=== PATIENT | female | born 1990 | race Caucasian/White ===

== ENCOUNTER 2018-12-20 22:39 | Emergency (ER) | payer MEDICAID, SELFPAY ==
[2018-12-20 22:56] VITALS: BP 122/75; PULSE 81; RESP 18; TEMP 37.4; O2SAT 97; BMI 27.6
--- NOTE | 2018-12-21 00:16 | [facility].EDDENT ---
ED Disposition Clinical Impression: Pain, dental Disposition: Home, Self-Care Condition on Discharge: Good Instructions: DI for Dental Pain Additional Instructions: use meds and call dentist Prescriptions: cephALEXin [Keflex 500mg Cap] 500 mg PO TID #30 cap Referrals: Francesca Dumas MD [Primary Care Provider] - - Critical Care Critical Care Time: No Attestation: On 12/20/18, the high probability of a clinically significant, sudden or life threatening deterioration of the following system(s) required my full and direct attention, intervention and personal management. The time I documented below is in addition to time spent performing reported procedures but includes the following listed in this critical care notation. Medical Decision Making - Medical Records Medical records reviewed: Yes: I reviewed the patient's medical records. - Hector Inquiry Pt receiving controlled substance: No Vital Signs: 12/20/18 22:56 Temperature 99.3 F Temperature Source Oral Pulse Rate [Right Brachial] 81 Respiratory Rate 18 Blood Pressure [Right Arm] 122/75 Blood Pressure Mean [Right Arm] 90 Blood Pressure Source [Right Arm] Automatic Cuff Blood Pressure Position [Right Arm] Sitting 02 Sat by Pulse Oximetry 97 Oxygen Delivery Method Room Air Orders (Tests/Meds): ED MEDICATIONS Discontinued Medications Generic Name Dose Route Start Last Admin Trade Name Freq PRN Reason Stop Dose Admin Acetaminophen 1,000 mg 12/20/18 23:39 12/20/18 23:42 Tylenol 500mg Tablet PO 12/20/18 23:40 1,000 mg ONCE ONE Administration Ibuprofen 600 mg 12/20/18 23:39 12/20/18 23:42 Motrin 600mg Tablet PO 12/20/18 23:40 600 mg ONCE ONE Administration Dental HPI - General Chief complaint: Dental/Oral Stated complaint: Mouth pain Time Seen by Provider: 12/21/18 00:16 Mode of Arrival: Ambulatory Source of Information: Patient, Medical Record Limitations: No Limitations Description of Symptoms (Recalled from ER Triage Doc. by RN): Pt had tooth pulled on tue. now c/o pain in his mouth. - History of Present Illness HPI Narrative: persistant swelling and tender pain at dental extraction site Onset (ago): day(s) Duration: constant Severity: moderate Context: other (s/p extraction ) Associated symptoms: gum swelling Treatment prior to arrival: recent dentist visit - Related Data Home Medications Medication Instructions Recorded Confirmed Hydrocod/Acet 5/325 mg [[place] 1 tab PO NEEDED PRN 12/20/18 12/20/18 5/325mg tablet] Ibuprofen [Ibuprofen 600mg 600 mg PO NEEDED PRN 12/20/18 12/20/18 Tablet] Previous Rx's Medication Instructions Recorded cephALEXin [Keflex 500mg Cap] 500 mg PO TID #30 cap 12/21/18 Allergies Allergy/AdvReac Type Severity Reaction Status Date / Time No Known Allergies Allergy Verified 12/20/18 23:34 [facility] History - Hepatitis A Screen Drug use history?: No High risk sexual behaviors?: No History of sexually transmitted infection?: No Currently employed?: No Childcare worker?: No Do you have indoor plumbing?: Yes Do you have electricity?: Yes Attestation statement:: This patient has been screened for Hepatitis A risk factors. I have reviewed the patient's past medical history: Yes - Social History Alcohol Intake: never Occupational Status: employed Housing: house - Psychiatric History Expresses thoughts of harming self/others: None Suicide Plan Description: No Plan ROS Obtained: Yes All systems reviewed & no additional complaints - Constitutional Constitutional: Denies fever(s) - Eyes Eyes: Denies change in vision - ENT Ears, Nose, Mouth, and Throat: Reports as per HPI, Reports dental pain, Denies sore throat - Cardiovascular Cardiovascular: Denies chest pain - Respiratory Respiratory: No cough - Gastrointestinal Gastrointestingal: Denies: abdominal pain - Genitourinary Female Genitourinary: Denies
--- NOTE | 2018-12-21 00:19 | ED_ITS ---
ED Disposition Clinical Impression: Pain, dental Disposition: Home, Self-Care Condition on Discharge: Good Instructions: DI for Dental Pain Additional Instructions: use meds and call dentist Prescriptions: cephALEXin [Keflex 500mg Cap] 500 mg PO TID #30 cap Referrals: Francesca Dumas MD [Primary Care Provider] - - Critical Care Critical Care Time: No Attestation: On 12/20/18, the high probability of a clinically significant, sudden or life threatening deterioration of the following system(s) required my full and direct attention, intervention and personal management. The time I documented below is in addition to time spent performing reported procedures but includes the following listed in this critical care notation. Medical Decision Making - Medical Records Medical records reviewed: Yes: I reviewed the patient's medical records. - Hector Inquiry Pt receiving controlled substance: No Vital Signs: 12/20/18 22:56 Temperature 99.3 F Temperature Source Oral Pulse Rate [Right Brachial] 81 Respiratory Rate 18 Blood Pressure [Right Arm] 122/75 Blood Pressure Mean [Right Arm] 90 Blood Pressure Source [Right Arm] Automatic Cuff Blood Pressure Position [Right Arm] Sitting 02 Sat by Pulse Oximetry 97 Oxygen Delivery Method Room Air Orders (Tests/Meds): ED MEDICATIONS Discontinued Medications Generic Name Dose Route Start Last Admin Trade Name Freq PRN Reason Stop Dose Admin Acetaminophen 1,000 mg 12/20/18 23:39 12/20/18 23:42 Tylenol 500mg Tablet PO 12/20/18 23:40 1,000 mg ONCE ONE Administration Ibuprofen 600 mg 12/20/18 23:39 12/20/18 23:42 Motrin 600mg Tablet PO 12/20/18 23:40 600 mg ONCE ONE Administration Dental HPI - General Chief complaint: Dental/Oral Stated complaint: Mouth pain Time Seen by Provider: 12/21/18 00:16 Mode of Arrival: Ambulatory Source of Information: Patient, Medical Record Limitations: No Limitations Description of Symptoms (Recalled from ER Triage Doc. by RN): Pt had tooth pulled on tue. now c/o pain in his mouth. - History of Present Illness HPI Narrative: persistant swelling and tender pain at dental extraction site Onset (ago): day(s) Duration: constant Severity: moderate Context: other (s/p extraction ) Associated symptoms: gum swelling Treatment prior to arrival: recent dentist visit - Related Data Home Medications Medication Instructions Recorded Confirmed Hydrocod/Acet 5/325 mg [[place] 1 tab PO NEEDED PRN 12/20/18 12/20/18 5/325mg tablet] Ibuprofen [Ibuprofen 600mg 600 mg PO NEEDED PRN 12/20/18 12/20/18 Tablet] Previous Rx's Medication Instructions Recorded cephALEXin [Keflex 500mg Cap] 500 mg PO TID #30 cap 12/21/18 Allergies Allergy/AdvReac Type Severity Reaction Status Date / Time No Known Allergies Allergy Verified 12/20/18 23:34 [facility] History - Hepatitis A Screen Drug use history?: No High risk sexual behaviors?: No History of sexually transmitted infection?: No Currentl
[2018-12-21 00:36] VITALS: BP 126/72; PULSE 76; RESP 16; TEMP 37.4; O2SAT 99
== END 2018-12-21 00:38 | disposition home or self-care (01) ==
PROVIDERS: Emergency Provider Emergency Medicine; PCP Family Medicine
DX: K00.6 Disturbances in tooth eruption (principal)
CPT/HCPCS: 99281